=== PATIENT | female | born 1960 | race Caucasian/White ===

== ENCOUNTER → 2020-09-21 13:57 | Outpatient (BNVA) | payer MEDICAID, SELFPAY | PROVIDERS: PCP Student in an Organized Health Care Education/Training Program; Referring Provider Student in an Organized Health Care Education/Training Program; Visit Provider Nurse Practitioner ==

== ENCOUNTER → 2021-03-29 13:59 | Outpatient (BNVA) | payer MEDICAID, SELFPAY | PROVIDERS: Visit Provider Nurse Practitioner | DX: K59.04 Chronic idiopathic constipation (principal); K58.1 Irritable bowel syndrome with constipation; K21.9 Gastro-esophageal reflux disease without esophagitis; K29.60 Other gastritis without bleeding; Z88.1 Allergy status to other antibiotic agents; Z94.0 Kidney transplant status; Z90.5 Acquired absence of kidney | CPT/HCPCS: 99212 ==

== ENCOUNTER → 2021-09-24 13:39 | Outpatient (BNVA) | payer MEDICAID, SELFPAY | PROVIDERS: Visit Provider Nurse Practitioner | DX: K58.1 Irritable bowel syndrome with constipation (principal); K29.60 Other gastritis without bleeding; K21.9 Gastro-esophageal reflux disease without esophagitis | CPT/HCPCS: 99212 ==

== ENCOUNTER → 2022-04-02 10:19 | Outpatient (BNVA) | payer MEDICAID, SELFPAY | PROVIDERS: PCP Student in an Organized Health Care Education/Training Program; Referring Provider Student in an Organized Health Care Education/Training Program; Visit Provider Nurse Practitioner | DX: K58.1 Irritable bowel syndrome with constipation (principal); K21.9 Gastro-esophageal reflux disease without esophagitis; K29.60 Other gastritis without bleeding; Z94.0 Kidney transplant status | CPT/HCPCS: 99212 ==

== ENCOUNTER → 2022-10-01 10:37 | Outpatient (BNVA) | payer MEDICAID, SELFPAY | PROVIDERS: PCP Student in an Organized Health Care Education/Training Program; Visit Provider Nurse Practitioner | DX: K21.9 Gastro-esophageal reflux disease without esophagitis (principal); Z94.0 Kidney transplant status | CPT/HCPCS: 99212 ==

== ENCOUNTER 2023-03-25 11:01 | Outpatient (AMB) | payer MEDICAID, SELFPAY ==
[2023-03-25 11:09] VITALS: BP 161/53; PULSE 68; BMI 34.5
--- NOTE | 2023-03-25 11:09 | MHC.OFFVIS ---
Intake Vital Signs 03/25/23 11:09 Height 5 ft Weight 176 lb 12.972 oz BMI 34.5 BP 161/53 H Blood Pressure Location Rt brachial Position Sitting Pulse 68 Intake Visit Reasons: 6 mnth follow up Intake Note: Patient in 6 months follow up of GERD. CC: Patient reports doing well and denies having any new GI symptoms or concerns today. Club Concierge Required: Yes Accompanied by: Grand Child Allergies cephalexin [CEPHALEXIN] Allergy (Intermediate, Verified 03/25/23 11:12) ITCHING HPI 6 mnth follow up HPI Details Assessment & Plan (1) GERD (gastroesophageal reflux disease): Code(s): K21.9 - Gastro-esophageal reflux disease without esophagitis Plan: [place] #Grddtr translates per pt request. She ran out of her pantorpazole and LInzess about 2 days ago, and has been having epigastic pain. She did not call my office and I educated her to do so in the future. 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 It is possible that she may need a reduction in her medications. She had a recent hospitalization twice recently for CHF. She has to do daily weights now. The only new medicine was meclizine. This was at [facility]. I can not help but wonder if they may have put her on some additional diuretics and that may be affecting her blood pressure. However, this is really not my issue to manage. The bottom line is that she is not feeling dizzy and she is aware that she probably should hold her blood pressure medications if her pressure remains low and she has any symptoms of syncope or near-syncope. Return office visit in 6 months (2) Renal transplant recipient: Code(s): Z94.0 - Kidney transplant status Medications: Refilled pantoprazole 40 mg PO BID 30 d ays 60 tabs 6RF K21.9 - Gastro-eso phageal reflux dis ease without esoph agitis linaclotide (Linze ss) 290 mcg PO DAILY 30 days 30 caps 6R F K58.1 - Irritable bowel syndrome wit h constipation TODAY'S VISIT [place] #grddtr translates per pt request. She continues to do well on her pantoprazole bid. Her LInzess was stopped when she was in the hospital likely r/t simplifying the stool burden. But then they do say that she had diarrhea in the hospital. At this time she is moving her bowels well. I tell them to advise me if this changes. She has not been in the hospital, but she is having trouble falling recently. She is in PT now. ROV 6 mos. PFSH Medical History COPD (chronic obstructive pulmonary disease) CVA (cerebral vascular accident) Diabetes High cholesterol Hypertension HERMES (obstructive sleep apnea) Peripheral neuropathy Surgical History Hx of colonoscopy Hx of eye surgery Hx of partial nephrectomy Hx of tubal ligation Family History Sister Breast cancer Social History Household Members: Family Alcohol intake: never Review of Systems Const Denies fatigue, Denies fever(s), Denies night sweats, Denies poor appetite and Denies weight loss ENT Reports Normal hearing present, Denies dental pain, Denies dysphagia, Denies hearing loss, Denies mouth pain, Denies odynophagia, Denies throat swelling, Denies tongue swelling and Reports other (Dentition adequate) Card Reports no additional complaints Resp Reports no additional complaints GI Denies abdominal pain, Denies melena, Denies bloating, Denies hematochezia, Denies constipation, Denies GI cramping, Denies dysphagia, Denies excessive flatus, Denies early satiety, Reports heartburn, Denies diarrhea, Denies nausea, Denies odynophagia, Denies vomiting and Denies hematemesis Skin/Breast Denies pruritus, Denies lesions, Denies rash and Denies jaundice Neuro Reports Normal hearing present and Denies Abnormal speech present Endo Denies fatigue Aller/Immun Denies throat swelling and Denies tongue swelling Physical Exam Vital Signs: Last Vital Signs Pulse 68 03/25/23 11:09 BP 161/53 H 03/25/23 11:09 BMI result Body Mass Index 34.5 Const General: cooperative, no acute distress, well developed and well groomed Nutritional Appearance: well nourished and obese Orientation/consciousness: oriented to person, oriented to place and oriented to time Limitations: language barrier and ambulation with cane HEENT Head: Yes normocephalic and Yes atraumatic Eyes General: appearance normal, both eyes and all related structures Pupils: Equal, round and reactive pupils present Neck Neck: Yes normal visual inspection and Yes no lymphadenopathy Thyroid: Thyroid normal Resp Effort & Inspection: normal respiratory effort and able to speak in complete sentences Auscultation: clear to auscultation bilaterally Cardio Rate: regular rate Rhythm: regular rhythm Heart sounds: Normal, physiologic split S2 sound present Peripheral pulses: radial pulses present and posterior tibial pulses present GI Inspection: No distended, Yes Abdominal panniculus present and Yes obesity Palpation (GI): Soft to palpation, nontender, no guarding, not rigid and No hepatosplenomegaly present Percussion: Yes normal to percussion Auscultation: normal bowel sounds Rectal Exam - Female: deferred Skin General skin exam: no rashes or lesions noted, turgor normal, skin not dry, no jaundice, No spider nevi and no striae Rashes: no rashes Nails: normal Neuro General: oriented to person, oriented to place and oriented to time Cranial nerves: Yes Equal, round and reactive pupils present and Yes Normal hearing present Speech: No Abnormal speech present Extrem General: Yes normal to inspection, No clubbing, No cyanosis and No edema Psych Appearance: grossly normal and well kempt Mental Status: mental status grossly normal Speech and movement: Normal speech and movement present Affect: normal affect Attitude: cooperative Thought process: Normal thought process present and not confabulating Thought content: Normal thought content present Insight: Limited insight present (Psych) Judgement: Limited judgement present (Psych) Assessment & Plan Assessment & Plan (1) GERD (gastroesophageal reflux disease): Code(s): K21.9 - Gastro-esophageal reflux disease without esophagitis Plan: [place] #grddtr translates per pt request. She continues to do well on her pantoprazole bid. Her LInzess was stopped when she was in the hospital likely r/t simplifying the stool burden. But then they do say that she had diarrhea in the hospital. At this time she is moving her bowels well. I tell them to advise me if this changes. She has not been in the hospital, but she is having trouble falling recently. She is in PT now. ROV 6 mos. (2) Erosive gastritis: Code(s): K29.60 - Other gastritis without bleeding (3) Irritable bowel syndrome with constipation: Code(s): K58.1 - Irritable bowel syndrome with constipation (4) Renal transplant recipient: Code(s): Z94.0 - Kidney transplant status Medications: Refilled pantoprazole 40 mg PO BID 30 days 60 tabs 6RF K21.9 - Gastro-esophageal reflux disease without esophagitis On Hold linaclotide (Linzess) Hold Comment: Doctor's Order 290 mcg PO DAILY 30 days 30 caps 6RF K58.1 - Irritable bowel syndrome with constipation Coding Level of Care Code Est Pt Level 3 (18334) Diagnoses GERD (gastroesophageal reflux disease) K21.9 Erosive gastritis K29.60 Irritable bowel syndrome with constipation K58.1 Renal transplant recipient Z94.0
== END 2023-03-25 11:48 | disposition home or self-care (01) ==
PROVIDERS: Visit Provider Nurse Practitioner
DX: K21.9 Gastro-esophageal reflux disease without esophagitis (principal); K29.60 Other gastritis without bleeding; K58.1 Irritable bowel syndrome with constipation; Z94.0 Kidney transplant status
CPT/HCPCS: 99213

== ENCOUNTER → 2023-03-25 11:01 | Outpatient (BNVA) | payer MEDICAID, SELFPAY | PROVIDERS: Visit Provider Nurse Practitioner | DX: K21.9 Gastro-esophageal reflux disease without esophagitis (principal); K29.60 Other gastritis without bleeding; K58.1 Irritable bowel syndrome with constipation; Z79.899 Other long term (current) drug therapy; Z94.0 Kidney transplant status | CPT/HCPCS: 99212 ==